=== PATIENT | male | born 1970 | race Caucasian/White ===

== ENCOUNTER 2023-04-11 21:57 | Emergency (ER) | payer BC, SELFPAY ==
[2023-04-11 22:09] VITALS: BP 161/101; PULSE 73; RESP 16; TEMP 36.6; O2SAT 99; BMI 28.6
[2023-04-11 22:16] LABS: Appearance Urine Cloudy (Clear); Bilirubin Urine Negative (Negative); Blood Urine 3+ (Negative); Color Urine Yellow (Yellow); Glucose Urine Negative (Negative); Ketones Urine Trace (Negative); Leukocyte Esterase Urine Negative (Negative); Nitrite Urine Negative (Negative); Protein Urine Trace (Negative); Specific Gravity Urine 1.025 (1.000-1.030); Urobilinogen Urine 0.2 (0.2-1.0); pH Urine 5.5 (5.0-8.5)
--- NOTE | 2023-04-11 22:17 | ED.GENADULT ---
HPI - General Adult General Time Seen by Provider: 22:17 Date Seen: 04/11/23 Chief complaint: Flank Pain Stated complaint: Lower L back pain, fever Time Seen by Provider: 04/11/23 22:16 Source: patient, RN notes reviewed and old records reviewed Mode of arrival: ambulatory Limitations: no limitations History of Present Illness HPI narrative: Philomena is a 52-year-old gentleman previously healthy who comes to the emergency room for evaluation of left flank pain and dysuria. Patient notes the onset of low back pain earlier this afternoon. He thought perhaps it was a musculoskeletal issue. Throughout the evening the pain became more intense and radiated into his left lower quadrant. Did not radiate into his scrotum or testicles. This was associated with urge to urinate. No blood in the urine. Denies any fever but did feel chilled at home. When the pain was at its worse he did have some vomiting and did have an urge to move about and try to find a comfortable feeling. At this time he is feeling much better. Nursing staff notes that urine sample had a small black palpable in the bottom of the urine cup. Related Data Home Medications Medication Instructions Recorded Confirmed No Known Home Medications 04/11/23 04/11/23 Allergies Allergy/AdvReac Type Severity Reaction Status Date / Time No Known Drug Allergies Allergy Verified 04/11/23 22:14 Review of Systems Status of ROS: Reports: 10 or more systems reviewed and unremarkable except as noted in History and below Const: Reports: chills; Denies: fever ENMT: Denies: neck pain Cardio: Denies: chest pain or shortness of breath with exertion Resp: Denies: shortness of breath GI: Reports: abdominal pain, nausea and vomiting; Denies: diarrhea : Reports: urinary frequency and urinary urgency; Denies: blood in urine Musculo: Denies: neck pain PFSH PFSH Social History Smoking Status: Never smoker Do you use any of these nicotine containing products: None How often do you have a drink containing alcohol: never AUDIT-C Alcohol total score: 0 Non-prescribed substance use: denies use Exam Narrative: Exam Narrative: Alert and oriented. No acute distress. Calm. Mentating normally Heart with regular rate and rhythm and lungs are clear. Abdomen soft with slight tenderness left lower quadrant. No rebound tenderness. No masses palpated. No CVA tenderness with percussion. Moving all extremities. Const: Vital Signs, click to edit/add: Vital Signs - 24 hr 04/11/23 22:09 Temperature 97.9 F Pulse Rate [Pulse Oximeter] 73 Respiratory Rate 16 Blood Pressure [Ri ght Upper Arm] 161/101 H Pulse Oximetry 99 Oxygen Delivery Me thod Room Air Documenting provider has reviewed patient's vital signs: yes Course Course ED Course: Differential diagnosis includes but is not limited to ureteral colic/nephrolithiasis, pyelonephritis, UTI, diverticulitis. Will place IV and give 500 mL normal saline. Patient is feeling better and thus will avoid any pain medications at this time. CBC, basic panel, urinalysis currently pending. CT noncontrast of the abdomen has been ordered. Reevaluation(s) Reevaluation #1: Patient continues to do well. Urinalysis with hematuria. White count slightly elevated 11.8 and electrolyte panel within normal limits with exception of glucose which is elevated at 142. Creatinine of 1.2. Vital Signs Vital signs: Initial Vital Signs Temperature 97.9 F 04/11/23 22:09 Temperature Source Temporal Artery Scan 04/11/23 22:09 Pulse Rate 73 04/11/23 22:09 Respiratory Rate 16 04/11/23 22:09 Blood Pressure 161/101 H 04/11/23 22:09 Blood Pressure Mean 121 H 04/11/23 22:09 Blood Pressure Position Sitting 04/11/23 22:09 Pulse Oximetry 99 04/11/23 22:09 Oxygen Delivery Method Room Air 04/11/23 22:09 Vital Signs Temperature 97.9 F 04/11/23 22:09 Pulse Rate 73 04/11/23 22:09 Respiratory Rate 16 04/11/23 22:09 Blood Pressure 161/101 H 04/11/23 22:09 Pulse Oximetry 99 04/11/23 22:09 Oxygen Delivery Method Room Air 04/11/23 22:09 Temperature 97.9 F 04/11/23 22:09 Pulse Rate 73 04/11/23 22:09 Respiratory Rate 16 04/11/23 22:09 Blood Pressure 161/101 H 04/11/23 22:09 Pulse Oximetry 99 04/11/23 22:09 Oxygen Delivery Method Room Air 04/11/23 22:09 Medications Administered Medications: Discontinued Medications Generic Name Dose Route Start Last Admin Trade Name Mathew PRN Reason Stop Dose Admin Sodium Chloride 500 mls @ 500 mls/hr 04/11/23 22:25 04/11/23 22:39 0.9 % Sodium Chloride 500 Ml IV 04/11/23 23:24 500 mls/hr .Q1H ONE Administration Medical Decision Making MDM Narrative Medical decision making narrative: 1. Ureteral colic-patient really has had no pain since he has been here and urine did show a small stone in the bottom of the urine cup. By my read there is mild hydro on the left kidney. Radiology did not feel that there is any evidence of hydronephrosis or stone. Patient received normal saline but did not require any pain medications while here. Will await the urine culture. 2. Mild colitis-patient notes that his did have mild GI symptoms a few weeks ago. He has not had any diarrhea. He really has not had those symptoms and incident earlier tonight does suggest ureteral colic. However, he is 52 years old and has not had a colonoscopy. I would ask that he follow-up with his primary who is Dr. Valdez. He should return to the emergency room for worsening symptoms and as needed. Medical Records Medical records reviewed: Yes I reviewed the patient's medical records Lab Data Lab results reviewed: Yes I reviewed the patient's lab results Labs: Lab Results 04/11/23 04/11/23 Range/Units 22:10 22:30 WBC 11.80 H (4.50-11.00) K/uL RBC 5.65 (4.30-5.90) m/uL Hgb 17.5 (13.5-17.5) gm/dL Hct 49.8 (37.0-53.0) % MCV 88 (80-100) fL MCH 31 (26-34) pg MCHC 35 (32-36) gm/dL RDW Coeff of Meenu 11.9 (11.5-15.5) % Plt Count 207 (140-440) K/uL Neut % (Auto) 82.2 H (42.0-72.0) % Lymph % (Auto) 10.2 L (20-44) % Bonner % (Auto) 5.4 (0.0-11.0) % Eos % (Auto) 0.9 (0.0-7.0) % Baso % (Auto) 0.3 (0.0-3.0) % Neut # (Auto) 9.70 H (1.7-7.0) K/uL Lymph # (Auto) 1.20 (0.90-2.90) K/uL Bonner # (Auto) 0.60 (0.00-0.90) K/UL Eos # (Auto) 0.10 (0.00-0.50) K/uL Baso # (Auto) 0.00 (0.00-0.30) K/uL Abs Immat Gran (auto) 0.10 (0.00-0.30) K/uL Imm/Tot Granulo (auto) 1.0 % Sodium 141 (135-149) mmol/L Potassium 4.1 (3.6-5.1) mmol/L Chloride 104 (96-114) mmol/L Carbon Dioxide 29 (20-32) mmol/L Anion Gap 8 (7-15) mEq/L BUN 23 (7-30) mg/dL Creatinine 1.2 (0.5-1.5) mg/dL Estimated Creat Clear 74.95 Estimated GFR 72 ml/min Glucose 142 H (60-115) mg/dL Calcium 9.3 (8.4-10.6) mg/dL Urine Color Yellow (Yellow) Urine Appearance Cloudy A (Clear) Urine pH 5.5 (5.0-8.5) Ur Specific Elliott 1.025 (1.000-1.030) Urine Protein Trace A (Negative) Urine Glucose (UA) Negative (Negative) Urine Ketones Trace A (Negative) Urine Blood 3+ A (Negative) Urine Nitrite Negative (Negative) Urine Bilirubin Negative (Negative) Urine Urobilinogen 0.2 (0.2-1.0) Ur Leukocyte Esterase Negative (Negative) Urine RBC 25-50 A (0-2) Urine WBC 2-5 (0-5) Ur Squamous Epith Cells Few (None-Few) Urine Bacteria Few A (None) Imaging Data CT scan - abdomen: Attestation: I have reviewed the pertinent imaging results. Radiologist's impression: Liver: Unremarkable. Gallbladder and bile ducts: Unremarkable. No biliary dilation. Spleen: Unremarkable. Pancreas: Unremarkable. Adrenal glands: Unremarkable. Kidneys, Ureters, and Bladder: Bilateral pelvic cysts. No hydronephrosis or ureteral dilation. No obstructing urinary calculi identified. Tiny nonobstructing left renal caliceal stone. Underdistended urinary bladder with mild wall thickening. Reproductive structures: Enlarged prostate gland with calcifications. GI tract/Peritoneum: No small bowel dilation. Moderate amount of stool throughout the colon. There is possible mild wall thickening of the distal descending colon and sigmoid colon, versus underdistention. Negative appendix. No intraperitoneal free air or fluid. Few small benign-appearing calcified nodules in the left lower quadrant mesentery. Vasculature: Abdominal aorta is normal in caliber. Lymph nodes: No lymphadenopathy. Abdominal wall: Small fat containing left inguinal hernia. Bones: Unremarkable. Lower chest: Unremarkable. IMPRESSION: 1. Possible mild nonspecific colitis involving the distal descending colon and sigmoid colon. 2. Bilateral parapelvic renal cysts. No hydronephrosis or obstructing urinary calculi. 3. Mild bladder wall thickening. Correlate with urinalysis. Discharge Plan Discharge Clinical Impression: Colic, ureteral, Colitis Patient Disposition: Home, Self-Care Condition: Improved Additional Instructions: Push fluids. We will wait on urine culture to determine if there is a coexisting infection. First look appears that there is not an infection. We will call you if you need an antibiotic Follow-up with Dr. Valdez for recheck. You have evidence of colitis on your CT. You may want to get colonoscopy. Return to the emergency room as needed. Prescriptions: No Action No Known Home Medications Follow Up/Referrals: Johnathon Valdez MD [Primary Care Provider] - Stand Alone Forms: [employer] Info Instructions
--- NOTE | 2023-04-11 22:25 | CRLHL7_ITS ---
For Patients: As a result of the Century Cures Act, medical imaging exams and procedure reports are released immediately into your electronic medical record. You may view this report before your referring provider. If you have questions, please contact your health care provider. INDICATION: Left lower quadrant pain. TECHNIQUE: CT of the abdomen and pelvis acquired without intravenous contrast. Coronal and sagittal reconstructions. COMPARISON: None. FINDINGS: Liver: Unremarkable. Gallbladder and bile ducts: Unremarkable. No biliary dilation. Spleen: Unremarkable. Pancreas: Unremarkable. Adrenal glands: Unremarkable. Kidneys, Ureters, and Bladder: Bilateral pelvic cysts. No hydronephrosis or ureteral dilation. No obstructing urinary calculi identified. Tiny nonobstructing left renal caliceal stone. Underdistended urinary bladder with mild wall thickening. Reproductive structures: Enlarged prostate gland with calcifications. GI tract/Peritoneum: No small bowel dilation. Moderate amount of stool throughout the colon. There is possible mild wall thickening of the distal descending colon and sigmoid colon, versus underdistention. Negative appendix. No intraperitoneal free air or fluid. Few small benign-appearing calcified nodules in the left lower quadrant mesentery. Vasculature: Abdominal aorta is normal in caliber. Lymph nodes: No lymphadenopathy. Abdominal wall: Small fat containing left inguinal hernia. Bones: Unremarkable. Lower chest: Unremarkable. IMPRESSION: 1. Possible mild nonspecific colitis involving the distal descending colon and sigmoid colon. 2. Bilateral parapelvic renal cysts. No hydronephrosis or obstructing urinary calculi. 3. Mild bladder wall thickening. Correlate with urinalysis. Please note that all CT scans at this facility use dose modulation, iterative reconstruction, and/or weight-based dosing when appropriate to reduce radiation dose to as low as reasonably achievable. Dictated by Tanvi Calderón MD @ 04/12/2023 1:03:32 AM (Electronically Signed)
[2023-04-11] MEDS: 0.9 % SODIUM CHLORIDE 500 ML 500 ML IV (22:39)
[2023-04-11 22:40] LABS: Basophils Percent Auto 0.3 % (0.0-3.0); Eosinophils Percent Auto 0.9 % (0.0-7.0); Hematocrit 49.8 % (37.0-53.0); Hemoglobin* 17.5 gm/dL (13.5-17.5); Lymphocytes Percent Auto 10.2 % (20-44); Mean Corpuscular HGB Conc 35 gm/dL (32-36); Mean Corpuscular Hemoglobin 31 pg (26-34); Mean Corpuscular Volume 88 fL (80-100); Monocytes Percent Auto 5.4 % (0.0-11.0); Neutrophils Percent Auto 82.2 % (42.0-72.0); Platelet Count* 207 K/uL (140-440); RDW Coefficient of Variation % 11.9 % (11.5-15.5); Red Blood Count 5.65 m/uL (4.30-5.90)
[2023-04-11 22:49] LABS: Slide Review Reflex No
[2023-04-11 22:50] LABS: Bacteria Urine Few; RBC Urine 25-50 (0-2); Squamous Epithelial Cell Urine Few (None-Few)
[2023-04-11 22:51] LABS: Chloride* 104 mmol/L (96-114)
[2023-04-11 22:52] LABS: Potassium* 4.1 mmol/L (3.6-5.1); Sodium* 141 mmol/L (135-149)
[2023-04-11 22:54] LABS: Creatinine* 1.2 mg/dL (0.5-1.5); Est. Creatinine Clearance* 74.95; Estimated Glomerular Filt Rate 72 ml/min
[2023-04-11 22:55] LABS: Anion Gap 8 mEq/L (7-15); Blood Urea Nitrogen* 23 mg/dL (7-30); Calcium* 9.3 mg/dL (8.4-10.6); Carbon Dioxide* 29 mmol/L (20-32); Glucose* 142 mg/dL (60-115)
[2023-04-12 01:19] VITALS: BP 154/78; PULSE 73; RESP 16; TEMP 36.6
== END 2023-04-12 01:20 | disposition home or self-care (01) ==
PROVIDERS: Emergency Provider Family Medicine; PCP Family Medicine
DX: N23 Unspecified renal colic (principal); K52.9 Noninfective gastroenteritis and colitis, unspecified
CPT/HCPCS: 36415; 74176; 80048; 81001; 85025; 87086; 96360; 96361; 99284; J7030

== ENCOUNTER 2023-05-21 08:12 | Outpatient (CLI) | payer BC, SELFPAY | END 2023-05-21 08:13 | disposition home or self-care (01) | LOC: NFLDREF 05-30 12:10 | PROVIDERS: PCP Family Medicine; Referring Provider Family Medicine; Visit Provider Family Medicine | DX: Z00.00 Encounter for general adult medical examination without abnormal findings (principal); I10 Essential (primary) hypertension; Z12.5 Encounter for screening for malignant neoplasm of prostate; Z13.6 Encounter for screening for cardiovascular disorders; Z13.29 Encounter for screening for other suspected endocrine disorder | CPT/HCPCS: 80053; 80061; 84443; G0103 ==

== ENCOUNTER 2023-05-28 07:24 | Outpatient (CLI) | payer BC, SELFPAY ==
--- NOTE | 2023-05-28 08:13 | W.ANESCHARGE ---
Anesthesia Charges Start Date/Time Anesthesia Start Date: 05/28/23 Anesthesia Start Time: 08:13 Stop Date/Time Anesthesia Stop Date: 05/28/23 Anesthesia Stop Time: 08:40
--- NOTE | 2023-05-28 08:50 | W.ANESCHARGE ---
Anesthesia Charges Start Date/Time Anesthesia Start Date: 05/28/23 Anesthesia Start Time: 08:13 Stop Date/Time Anesthesia Stop Date: 05/28/23 Anesthesia Stop Time: 08:40
== END 2023-05-28 07:25 | disposition home or self-care (01) ==
LOC: OP CLINIC 07:25
PROVIDERS: PCP Family Medicine; Visit Provider Surgery
DX: Z12.11 Encounter for screening for malignant neoplasm of colon (principal); Z83.719 Family history of colon polyps, unspecified
CPT/HCPCS: 45378; 812; J2704

== ENCOUNTER 2024-05-23 08:15 | Outpatient (CLI) | payer BC, SELFPAY | END 2024-05-23 08:16 | disposition home or self-care (01) | LOC: NFLDREF 05-25 23:57 | PROVIDERS: PCP Family Medicine; Referring Provider Family Medicine; Visit Provider Family Medicine | DX: E78.5 Hyperlipidemia, unspecified (principal); I10 Essential (primary) hypertension | CPT/HCPCS: 80053; 80061 ==